=== PATIENT | male | born 1955 ===

== ENCOUNTER 2020-04-10 14:18 | Outpatient (CLI) | payer MEDICAID ==
[~2020-04-10] VITALS: Ht 175.3 cm; Wt 77.1 kg
[2020-04-10 14:41] VITALS: BP 121/75
[2020-04-11] MEDS ORDERED: METFORMIN HCL500 M1 ORAL (08:44)
[2020-04-11] MEDS ORDERED: SIMVASTATIN20 MG ORAL (08:44)
[2020-04-11] MEDS ORDERED: DICLOFENAC SODI75 MG ORAL (08:44)
[2020-04-11] MEDS ORDERED: BRIMONIDINE TART5 ML RIGHT EYE (08:44)
[2020-04-11] MEDS ORDERED: BETIMOL5 M2 OP (08:44)
[2020-04-11] MEDS ORDERED: LISINOPRIL5 MG ORAL (08:44)
== END 2020-04-10 16:18 | disposition home or self-care (01) ==
LOC: PAN 14:18
DX: Z00.00 Encounter for general adult medical examination without abnormal findings (principal)
CPT/HCPCS: 99203